=== PATIENT | male | born 1995 | race Caucasian/White ===

== ENCOUNTER 2017-12-24 21:57 | Inpatient (IN) | payer OTHER ==
[2017-12-24] MEDS: ONDANSETRON 4 MG INJ IV (22:20)
[2017-12-24] MEDS: KETOROLAC 15 MG INJ IV (22:20)
[2017-12-24] MEDS: BELLADONNA/PHENOBARBITAL TAB PO (22:21)
[2017-12-24] MEDS: LIDOCAINE/MYLANTA 40 ML BTL PO (22:21)
[2017-12-24] MEDS: SOD CHLORIDE 0.9% 1,000 ML IV (22:21)
[2017-12-24 22:31] LABS: ADD MAN DIFF? NO
[2017-12-24 22:33] LABS: BASOPHILS % 0.3 % (0.0-2.0); EOSINOPHILS % 0.1 % (0.0-7.0); HEMATOCRIT 45.4 % (42.0-52.0); HEMOGLOBIN 16.3 g/dl (14.0-18.0); LYMPHOCYTES # 0.8 10^3/ul (0.8-2.9); LYMPHOCYTES % 8.2 % (15.0-51.0); MEAN CORPUSCULAR HEMOGLOBIN 33.6 pg (29.0-33.0); MEAN CORPUSCULAR HGB CONC 35.9 g/dl (32.0-37.0); MEAN CORPUSCULAR VOLUME 93.6 fl (82.0-101.0); MEAN PLATELET VOLUME 8.7 fl (7.4-10.4); MONOCYTE # 0.6 10^3/ul (0.3-0.9); MONOCYTES % 5.5 % (0.0-11.0); NEUTROPHIL # 8.5 10^3/ul (1.6-7.5); NEUTROPHILS % 85.1 % (39.0-77.0); PLATELET COUNT 191 10^3/UL (140-415); RED BLOOD COUNT 4.85 10^6/ul (4.70-6.10); RED CELL DISTRIBUTION WIDTH 13.3 % (11.5-14.5)
[2017-12-24 22:50] LABS: ALANINE AMINOTRANSFERASE 57 IU/L (13-69); ALBUMIN 4.1 g/dl (3.3-4.9); ALBUMIN/GLOBULIN RATIO 1.24; ALKALINE PHOSPHATASE 76 IU/L (42-121); ANION GAP 18 (8-16); ASPARTATE AMINO TRANSFERASE 24 IU/L (15-46); BILIRUBIN,INDIRECT 0.7 mg/dl (0-1.1); BILIRUBIN,TOTAL 0.7 mg/dl (0.2-1.3); BLOOD UREA NITROGEN 22 mg/dl (7-20); CALCIUM 8.6 mg/dl (8.4-10.2); CARBON DIOXIDE 27 mmol/L (21-31); CHLORIDE 104 mmol/L (97-110); CREATININE 1.15 mg/dl (0.61-1.24); GLUCOSE 114 mg/dl (70-220); LIPASE 45 U/L (23-300); POTASSIUM 3.4 mmol/L (3.5-5.1); SODIUM 146 mmol/L (135-144); TOTAL PROTEIN 7.4 g/dl (6.1-8.1)
[2017-12-25] MEDS ORDERED: NACL 0.9% 3 ML SYG IV (01:30)
[2017-12-25] MEDS ORDERED: ALBUTEROL/IPRATROPIUM (NEB) 3 ML AMP HHN (01:30)
[2017-12-25] MEDS: DEXTROSE 5%-0.45% NACL 1,000 ML IV ×3 (03:36→20:50)
[2017-12-25 05:27] LABS: ADD MAN DIFF? NO
[2017-12-25 05:42] LABS: WHITE BLOOD COUNT 6.9 10^3/ul (4.8-10.8)
[2017-12-25 05:42] LABS: BASOPHILS % 0.3 % (0.0-2.0); EOSINOPHILS % 0.1 % (0.0-7.0); HEMATOCRIT 39.5 % (42.0-52.0); LYMPHOCYTES # 0.7 10^3/ul (0.8-2.9); MEAN CORPUSCULAR HEMOGLOBIN 33.4 pg (29.0-33.0); MEAN CORPUSCULAR HGB CONC 35.4 g/dl (32.0-37.0); MEAN CORPUSCULAR VOLUME 94.3 fl (82.0-101.0); MONOCYTE # 0.5 10^3/ul (0.3-0.9); MONOCYTES % 6.5 % (0.0-11.0); NEUTROPHIL # 5.7 10^3/ul (1.6-7.5); NEUTROPHILS % 82.8 % (39.0-77.0); PLATELET COUNT 171 10^3/UL (140-415); RED BLOOD COUNT 4.19 10^6/ul (4.70-6.10); RED CELL DISTRIBUTION WIDTH 13.5 % (11.5-14.5)
[2017-12-25 06:16] LABS: ALANINE AMINOTRANSFERASE 48 IU/L (13-69); ALBUMIN 3.3 g/dl (3.3-4.9); ALBUMIN/GLOBULIN RATIO 1.13; ALKALINE PHOSPHATASE 62 IU/L (42-121); ANION GAP 14 (8-16); ASPARTATE AMINO TRANSFERASE 23 IU/L (15-46); BILIRUBIN,INDIRECT 0.3 mg/dl (0-1.1); BILIRUBIN,TOTAL 0.3 mg/dl (0.2-1.3); BLOOD UREA NITROGEN 20 mg/dl (7-20); CALCIUM 8.3 mg/dl (8.4-10.2); CARBON DIOXIDE 26 mmol/L (21-31); CHLORIDE 108 mmol/L (97-110); CREATININE 1.04 mg/dl (0.61-1.24); GLUCOSE 121 mg/dl (70-220); PHOSPHORUS 2.8 mg/dl (2.5-4.9); POTASSIUM 3.3 mmol/L (3.5-5.1); SODIUM 145 mmol/L (135-144); TOTAL PROTEIN 6.2 g/dl (6.1-8.1)
[2017-12-25] MEDS: DIATR MEGLU/DIATRIZOATE SODIUM 120 ML BTL (07:00)
[2017-12-25] MEDS: FAMOTIDINE 20 MG INJ IV ×2 (08:16→20:50)
[2017-12-25] MEDS: POTASSIUM CHLORIDE (SR) 20 MEQ TAB PO (08:16)
[2017-12-25] MEDS: ONDANSETRON 4 MG INJ IV (19:49)
[2017-12-25] MEDS: morphine 2 MG INJ IV (19:49)
[2017-12-26] MEDS: DEXTROSE 5%-0.45% NACL 1,000 ML IV ×2 (00:38→10:19)
[2017-12-26 06:09] LABS: ADD MAN DIFF? NO
[2017-12-26 06:18] LABS: WHITE BLOOD COUNT 3.3 10^3/ul (4.8-10.8)
[2017-12-26 06:18] LABS: BASOPHILS % 0.6 % (0.0-2.0); EOSINOPHILS # 0.1 10^3/ul (0.0-0.5); EOSINOPHILS % 1.5 % (0.0-7.0); HEMATOCRIT 40.6 % (42.0-52.0); HEMOGLOBIN 14.3 g/dl (14.0-18.0); LYMPHOCYTES # 1.1 10^3/ul (0.8-2.9); LYMPHOCYTES % 32.1 % (15.0-51.0); MEAN CORPUSCULAR HEMOGLOBIN 33.8 pg (29.0-33.0); MEAN CORPUSCULAR HGB CONC 35.2 g/dl (32.0-37.0); MEAN PLATELET VOLUME 9.1 fl (7.4-10.4); MONOCYTE # 0.5 10^3/ul (0.3-0.9); MONOCYTES % 15.9 % (0.0-11.0); NEUTROPHIL # 1.7 10^3/ul (1.6-7.5); NEUTROPHILS % 49.6 % (39.0-77.0); PLATELET COUNT 179 10^3/UL (140-415); RED BLOOD COUNT 4.23 10^6/ul (4.70-6.10)
[2017-12-26 06:47] LABS: ANION GAP 15 (8-16); BLOOD UREA NITROGEN 10 mg/dl (7-20); CALCIUM 8.7 mg/dl (8.4-10.2); CARBON DIOXIDE 25 mmol/L (21-31); CHLORIDE 112 mmol/L (97-110); GLUCOSE 99 mg/dl (70-220); MAGNESIUM 2.1 mg/dl (1.7-2.5); PHOSPHORUS 3.3 mg/dl (2.5-4.9); POTASSIUM 3.6 mmol/L (3.5-5.1); SODIUM 148 mmol/L (135-144)
[2017-12-26] MEDS: FAMOTIDINE 20 MG INJ IV (08:50)
== END 2017-12-26 16:00 | disposition home or self-care (01) | DRG 392 ==
LOC: PP2 12-25 00:14 → E/R 21:57
DX: A08.4 Viral intestinal infection, unspecified (principal); K76.0 Fatty (change of) liver, not elsewhere classified; N13.30 Unspecified hydronephrosis; Q90.9 Down syndrome, unspecified; E83.51 Hypocalcemia
CPT/HCPCS: 36415; 74176; 74250; 80048; 80053; 83690; 83735; 84100; 85025; 87075; 96374; 96375; 99285-25